=== PATIENT | female | born 1970 | race Caucasian/White ===

== ENCOUNTER 2016-06-29 15:30 | Inpatient (IN) ==
[2016-06-29 17:46] LABS: Appearance,Urine CLEAR; Bilirubin,Urine NEG (NEG); Color,Urine YELLOW; Glucose,Urine (UA) NEGATIVE (NEG); Leukocyte Esterase,Urine NEG /uL (NEG); Nitrate,Urine NEG (NEG); Protein,Urine NEG (NEG); Specific Gravity,Urine 1.015 (1.000-1.035); Urine Blood NEG mg/dL (<0.03); Urobilinogen,Urine NEG (NEG)
[2016-06-29 18:16] LABS: Basophils # (Auto) 0.1 K/mcL (0.0-0.3); Basophils % (Auto) 0.8 % (0.0-2.0); Eosinophils # (Auto) 0.3 K/mcL (0.0-0.7); Eosinophils % (Auto) 3.3 % (0.0-7.0); Granulocytes % (Auto) 52.7 % (38.0-78.0); Lymphocytes # (Auto) 2.7 K/mcL (1.5-4.8); Lymphocytes % (Auto) 33.5 % (15.5-49.0); Mean Cell Volume 96.4 fL (80.0-100.0); Mean Corpuscular HGB Conc 33.2 g/dL (31.0-36.0); Monocytes # (Auto) 0.8 K/mcL (0.1-0.9); Monocytes % (Auto) 9.7 % (1.0-12.0); Platelet Count 340 K/mcL (140-440); RBC 4.34 M/mcL (4.00-5.20); Red Cell Distribution Width 13.5 % (11.5-14.5)
[2016-06-29 18:37] LABS: Blood Urea Nitrogen 10 mg/dl (6-20)
[2016-06-30] MEDS ORDERED: SCOPOLAMINE 1 PATCH PATCH TOPICAL ONE (12:34)
[2016-07-03] MEDS ORDERED: ACETAMINOPHEN 500 MG TABLET PO SCH (05:00)
[2016-07-03] MEDS ORDERED: ceFAZolin 1 GM VIAL IV SCH (05:00)
[2016-07-03] MEDS ORDERED: CELECOXIB 200 MG CAPSULE PO SCH (05:00)
[2016-07-03] MEDS ORDERED: SCOPOLAMINE 1 PATCH PATCH TOPICAL SCH (05:00)
[2016-07-03] MEDS ORDERED: oxyCODONE 10 MG TAB.ER.12H PO SCH (05:00)
[2016-07-03] MEDS ORDERED: PREGABALIN 75 MG CAPSULE PO SCH (05:00)
[2016-07-03] MEDS ORDERED: GENTAMICIN SULFATE 800 MG/20 ML VIAL IR ONE (07:07)
[2016-07-03] MEDS ORDERED: TRANEXAMIC ACID 1,000 MG/10 ML VIAL IV ONE (07:35)
[2016-07-03] MEDS ORDERED: LIDOCAINE HCL/PF 100 MG/5 ML SYRINGE IV ONE (07:35)
[2016-07-03] MEDS ORDERED: PROPOFOL 200 MG/20 ML VIAL IV ONE (07:35)
[2016-07-03] MEDS ORDERED: ePHEDrine 50 MG/ML AMPUL IV ONE (07:35)
[2016-07-03] MEDS ORDERED: DEXAMETHASONE 10 MG/ML VIAL IV ONE (07:35)
[2016-07-03] MEDS ORDERED: GLYCOPYRROLATE 0.2 MG/ML VIAL IV ONE (07:35)
[2016-07-03] MEDS ORDERED: ONDANSETRON 4 MG/2 ML VIAL IV ONE (07:35)
[2016-07-03] MEDS ORDERED: MIDAZOLAM 5 MG/5 ML VIAL IV ONE (07:35)
[2016-07-03] MEDS ORDERED: MEPERIDINE 25 MG/ML SYRINGE IV PRN (08:35)
[2016-07-03] MEDS ORDERED: ONDANSETRON 4 MG/2 ML VIAL IV PRN ×2 (08:35→08:52)
[2016-07-03] MEDS ORDERED: FLUMAZENIL 0.1 MG/ML ML IV PRN (08:35)
[2016-07-03] MEDS ORDERED: LACTATED RINGERS 250 ML IV PRN (08:35)
[2016-07-03] MEDS ORDERED: IPRATROPIUM/ALBUTEROL 3 ML AMPUL.NEB NEB PRN (08:35)
[2016-07-03] MEDS ORDERED: HYDROmorphone 2 MG/ML SYRINGE IV PRN ×2 (08:35→08:52)
[2016-07-03] MEDS ORDERED: BENZOCAINE/MENTHOL 1 LOZENGE PO PRN ×2 (08:35→08:52)
[2016-07-03] MEDS ORDERED: NALOXONE HCL 0.4 MG/ML VIAL IV PRN (08:35)
[2016-07-03] MEDS ORDERED: diphenhydrAMINE 50 MG/ML VIAL IV PRN (08:35)
[2016-07-03] MEDS ORDERED: METHOCARBAMOL 1,000 MG/10 ML VIAL IV PRN (08:35)
[2016-07-03] MEDS ORDERED: LACTATED RINGERS 1,000 ML IV SCH (08:45)
--- NOTE | 2016-07-03 08:45 | XRay Report ---
CLINICAL INFORMATION: Left hip arthroplasty TECHNIQUE: Intraoperative AP view of the left hip COMPARISON: Preoperative evaluation dated 03/20/2016 FINDINGS: Left total hip arthroplasty. Anatomic alignment demonstrated on single intraoperative examination IMPRESSION: Left hip arthroplasty Interpreted and Authenticated by: Temo Douglas 07/03/16
[2016-07-03] MEDS ORDERED: BISACODYL 10 MG SUPP.RECT PR PRN (08:52)
[2016-07-03] MEDS ORDERED: MAGNESIUM HYDROXIDE 30 ML ORAL.SUSP PO PRN (08:52)
[2016-07-03] MEDS ORDERED: ACETAMINOPHEN 325 MG TABLET PO PRN (08:52)
[2016-07-03] MEDS ORDERED: FLEETS ADULT ENEMA PR PRN (08:52)
[2016-07-03] MEDS ORDERED: TRANEXAMIC ACID 1,000 MG/10 ML VIAL IV SCH (08:52)
[2016-07-03] MEDS ORDERED: POLYETHYLENE GLYCOL 3350 17 GM PACKET PO PRN (08:52)
--- NOTE | 2016-07-03 08:52 | Brief Operative Note ---
Date of procedure: 07/03/16 Pre-op diagnosis: Left hip djd Post-op diagnosis: same Procedure: Left cayetano Grafts/Implants: Yes Anesthesia: GETA Findings: severe djd left hip Complications Description: 07/03/16 08:52 none Surgeon: Joshua Lenz Appeals Writer: Sree Anaya Estimated blood loss (cc): 50 Specimens Removed/Pathology: none sent Condition: stable Disposition: PACU
[2016-07-03] MEDS ORDERED: [UNRECOGNIZED DRUG - OTHER] PO PRN (08:58)
[2016-07-03] MEDS ORDERED: CYCLOBENZAPRINE 10 MG TABLET PO PRN (08:58)
[2016-07-03] MEDS: VITAMIN D3 1,000 UNIT TABLET PO SCH (09:00)
[2016-07-03] MEDS: MULTIVIT,THER IRON,CA,FA & MIN 1 TABLET PO SCH (09:00)
[2016-07-03] MEDS: VITAMIN B COMPLEX 1 CAPSULE PO SCH (09:00)
[2016-07-03] MEDS: PYRIDOXINE 100 MG TABLET PO SCH (09:00)
[2016-07-03] MEDS: CYANOCOBALAMIN (VITAMIN B-12) 500 MCG TABLET PO SCH (09:00)
[2016-07-03] MEDS: DOCUSATE SODIUM 100 MG CAPSULE PO SCH ×2 (09:00→20:23)
[2016-07-03] MEDS: fentaNYL 100 MCG/2 ML VIAL IV PRN ×2 (09:28→09:36)
--- NOTE | 2016-07-03 09:42 | XRay Report ---
CLINICAL INFORMATION: Postsurgical follow-up TECHNIQUE: AP pelvis, lateral left hip COMPARISON: Preoperative evaluation dated 03/20/2016 FINDINGS: Status post left total hip arthroplasty. Normal anatomic alignment demonstrated. Pelvis is negative. Sacrum and right hip are negative. Degenerative joint space narrowing in the right hip. Postsurgical soft tissue and intra-articular gas. IMPRESSION: Status post left total hip arthroplasty. Interpreted and Authenticated by: Temo Douglas 07/03/16
--- NOTE | 2016-07-03 09:46 | Operative Note ---
DATE OF OPERATION: 07/03/2016 PREOPERATIVE DIAGNOSIS: Left hip degenerative arthritis, severe. POSTOPERATIVE DIAGNOSIS: Left hip degenerative arthritis, severe. PROCEDURE: Left total hip arthroplasty, cementless components. SURGEON: Joshua Lenz MD NET DEVELOPER: Sree Anaya PA-C ANESTHESIA: General LMA anesthesia. COMPLICATIONS: None. DESCRIPTION OF PROCEDURE: The patient was brought to the operating room and put to sleep with general LMA anesthesia. Once asleep, the patient had the left hip sterilely prepped and draped in the usual sterile fashion. Once this was done, we confirmed the operative site and turned her into a right lateral position and placed Ioban over the skin, confirmed the operative site. Tranexamic acid and antibiotics had been given preoperatively. Patient tolerated this well. We then made our superior posterior approach to the hip, dissected down through the fascial layer, exposed the hip, dislocated the hip and made our neck cut at 32 mm from the center of hip rotation. Once complete, we then reamed up to the size 52 and implanted a 52 cup. Once this was done, we then put 1 20 mm screw and a dual mobility liner. We broached up to the size 4 and took an x-ray of a size 4 and then slightly sunk the final implant a little bit lower to make leg lengths perfectly equal and placed a neutral neck length. The patient tolerated this well. There was no complication. This was irrigated. We implanted the final size 4 stem with a neutral neck length, dual mobility ball. We repaired the capsule posteriorly, closed the fascial layer with #2 Ethibond, #1 Vicryl and closed the skin with #2 Vicryl and an adhesive closure performed. The patient tolerated this well without complication. RBH:elodia Job ID: [id number] Doc ID: [id number] Joshua Lenz MD
[2016-07-03] MEDS: KETOROLAC 15 MG/ML VIAL IV PRN ×2 (11:26→18:28)
[2016-07-03] MEDS: 0.45 % SODIUM CHLORIDE 1,000 ML IV SCH ×2 (12:06→21:37)
[2016-07-03] MEDS: HYDROcodone/APAP 10/325MG TABLET PO PRN ×3 (14:33→22:45)
[2016-07-03] MEDS: 0.9 % SODIUM CHLORIDE 10 ML SYRINGE IV SCH ×2 (14:37→22:55)
[2016-07-03] MEDS: ceFAZolin 1 GM VIAL IV SCH ×2 (15:58→23:58)
[2016-07-03] MEDS: ASPIRIN 325 MG ENTERIC COATED TABLET PO SCH (20:23)
[2016-07-03] MEDS ORDERED: SENNOSIDES 1 TABLET PO SCH (21:00)
[2016-07-03] MEDS ORDERED: PARoxetine 20 MG TABLET PO SCH (21:00)
[2016-07-03] MEDS ORDERED: TEMAZEPAM 15 MG CAPSULE PO PRN (21:00)
[2016-07-03] MEDS ORDERED: CALCIUM CARBONATE 500 MG TAB.CHEW PO SCH (21:00)
[2016-07-03] MEDS ORDERED: PROGESTERONE MICRONIZED 100 MG PO SCH (21:00)
[2016-07-03] MEDS ORDERED: ESTRADIOL 1 MG TABLET PO SCH (21:00)
[2016-07-04] MEDS: HYDROcodone/APAP 10/325MG TABLET PO PRN ×4 (03:15→16:00)
[2016-07-04] MEDS: 0.45 % SODIUM CHLORIDE 1,000 ML IV SCH (04:37)
[2016-07-04] MEDS: 0.9 % SODIUM CHLORIDE 10 ML SYRINGE IV SCH ×2 (04:45→14:40)
[2016-07-04] MEDS: KETOROLAC 15 MG/ML VIAL IV PRN ×2 (07:32→14:37)
--- NOTE | 2016-07-04 07:36 | Orthopedic Progress Note ---
Subjective Patient information: Note initiated : 07/04/16 at 7:36 am Service Date, if different from initiated Date: [] Patient: Elli Lopez 45 y/o F admitted on 07/03/16 for Left Total Hip Arthroplasty. Chief Complaint: [Pt is stable this morning on post operative day 1 without any significant concerns or complaints. Patients vital signs have remained stable. Patients dressing is dry and exhibits a grossly intact neurovascular and neuromotor exam. Patients 10 point ROS is otherwise negative. ] Objective Vital signs: Vital Signs Temp Pulse Resp BP BP Pulse Ox 07/04/16 03:41 97.9 F 69 16 106/72 97 07/04/16 02:00 96 07/04/16 00:00 97.6 F 81 16 101/65 96 07/03/16 22:00 97 07/03/16 19:55 98.4 F 91 H 16 115/76 97 07/03/16 18:00 99 07/03/16 14:00 99 07/03/16 12:45 79 132/86 98 07/03/16 12:00 100 07/03/16 11:45 79 132/86 98 07/03/16 11:15 82 139/92 98 07/03/16 10:52 100 07/03/16 10:40 82 130/80 100 07/03/16 10:26 89 127/61 100 07/03/16 10:10 82 122/83 100 07/03/16 09:55 87 132/86 98 07/03/16 09:54 84 124/77 100 07/03/16 09:40 97.2 F L 94 H 12 99/73 100 07/03/16 09:30 96 H 11 L 109/98 100 07/03/16 09:08 97.2 F L 79 13 100 Intake and Output 07/03/16 07/04/16 07/04/16 21:59 05:59 13:59 Intake Total 1552 / 1552 1335 / 1335 Output Total 400 / 400 325 / 325 Balance 1152 / 1152 1010 / 1010 Intake: IV 952 / 952 585 / 585 Sodium Chloride 0.45% 1, 952 / 952 585 / 585 000 ml @ 100 mls/hr IV . Q10H [facility] Rx#:[id number] Oral 600 / 600 750 / 750 Output: Void Amount 400 / 400 325 / 325 Other: Meal Dinner Percent of Meal Consumed 50% # Voids 1 Weight 184 lb Intake & Output: Intake & Output 07/03/16 07/04/16 07/04/16 21:59 05:59 13:59 Intake Total 1552 / 1552 1335 / 1335 Output Total 400 / 400 325 / 325 Balance 1152 / 1152 1010 / 1010 Weight 184 lb Intake: IV 952 / 952 585 / 585 Sodium Chloride 0.45% 1, 952 / 952 585 / 585 000 ml @ 100 mls/hr IV . Q10H [facility] Rx#:[id number] Oral 600 / 600 750 / 750 Output: Void Amount 400 / 400 325 / 325 Other: Meal Dinner Percent of Meal Consumed 50% # Voids 1 Incision: Yes healing Incision clean and dry: Yes Dressing: Yes clean, Yes dry Weight bearing status: full Neurological exam IM: Yes motor sensory intact, Yes neurovascular intact Extremities exam IM: Yes Foot pink and warm, Yes neurovascular intact - Labs CBC & BMP: 07/04/16 05:23 06/29/16 16:08 Labs: Orthopedic Labs 06/29/16 16:08 PT 12.0 INR 0.9 APTT 29 07/04/16 06/29/16 05:23 16:08 Hgb 13.9 Hct 25.9 L 41.8 Assessment and Plan (1) Hx of total hip arthroplasty Patient has been educated regarding wound care and dressings, follow up recommendations, and medication use. We will f/u with the patient within 2-3 weeks for wound check. Status: Acute
--- NOTE | 2016-07-04 07:39 | Discharge Summary ---
Ortho Discharge - SONIA - Patient Instructions Diet: Regular Diet Activity: activity as tolerated, weight bearing as tolerated Total Hip Protocol: Follow activity instructions as provided by Physical Therapy. Dressing Care: May shower in 2 days Patient Education: Total Hip Replacement (DC) Additional Instructions: Discharge Instructions: Patient wishes to do own pt at home Do the exercises at home that physical therapy gave you. Take your prescription, photo ID, insurance cards, and current medication list with you to your first physical therapy appointment. [place] [facility] [place], insurance cards. Your orders have been faxed to them. Wear comfortable clothing for your physical therapy. Weight bearing as tolerated. Keep incision clean and dry. You have Dermabond (a dressing with a mesh-like appearance), leave open to air. You may start showering on post op day #2. The Dermabond dressing can get wet, do not scrub dressing. Pat dry. To avoid constipation while taking any narcotic pain medication, take an over the counter stool softener/laxative. Use your Cryocuff or ice packs as directed, on for 20 minutes at a time throughout the day. This and elevation will help with pain and swelling. Call your physician for fevers above 100.5 or pain not controlled by medication. Your prescriptions are with your discharge information. Some medications were electronically transmitted to your pharmacy of choice. - Problem Maintenance (1) Hx of total hip arthroplasty Status: Acute - Follow Up Plan Follow Up Appointments: Joshua Lenz MD [Physician] - 07/18/16 8:40 am Disposition: Home, Self-Care Prognosis: Good Rehab Potential: Good I certify that the patient requires SNF services: No Overall status at discharge: patient is progressing back to baseline - Orders For Discharge Prescriptions: Aspirin [Ecotrin] 325 mg PO BID #60 tab.ec Docusate Sodium [Colace] 100 mg PO BID #60 capsule HYDROcodone/APAP 10/325MG [[place] 10/325Mg] 1 - 2 tab PO Q4HP PRN #75 tablet PRN Reason: Pain
[2016-07-04] MEDS ORDERED: FERROUS SULFATE 325 MG TABLET PO SCH (08:00)
[2016-07-04] MEDS: ASPIRIN 325 MG ENTERIC COATED TABLET PO SCH (08:55)
[2016-07-04] MEDS: DOCUSATE SODIUM 100 MG CAPSULE PO SCH (08:56)
[2016-07-04] MEDS: VITAMIN B COMPLEX 1 CAPSULE PO SCH (08:56)
[2016-07-04] MEDS: VITAMIN D3 1,000 UNIT TABLET PO SCH (08:56)
[2016-07-04] MEDS: MULTIVIT,THER IRON,CA,FA & MIN 1 TABLET PO SCH (08:56)
[2016-07-04] MEDS: CYANOCOBALAMIN (VITAMIN B-12) 500 MCG TABLET PO SCH (08:56)
[2016-07-04] MEDS: PYRIDOXINE 100 MG TABLET PO SCH (08:57)
[2016-07-04] MEDS ORDERED: ESTRADIOL 1 MG TABLET PO SCH (09:00)
[2016-07-04] MEDS ORDERED: PROGESTERONE MICRONIZED 100 MG PO SCH (09:00)
[2016-07-04] MEDS ORDERED: PARoxetine 20 MG TABLET PO SCH (09:00)
== END 2016-07-04 16:00 | disposition home or self-care (01) | DRG 470 ==
LOC: MEDSUR 07-03 05:04
PROVIDERS: ADMIT Orthopaedic Surgery; ATTEND Orthopaedic Surgery

== ENCOUNTER 2017-01-09 13:30 | Inpatient (IN) ==
[2017-01-09 15:22] LABS: Appearance,Urine CLEAR; Bilirubin,Urine NEG (NEG); Color,Urine YELLOW; Glucose,Urine (UA) NEGATIVE (NEG); Leukocyte Esterase,Urine NEG /uL (NEG); Nitrate,Urine NEG (NEG); Protein,Urine NEG (NEG); Specific Gravity,Urine 1.009 (1.000-1.035); Urine Blood NEG mg/dL (<0.03); Urobilinogen,Urine NEG (NEG)
[2017-01-09 16:03] LABS: Basophils # (Auto) 0.1 K/mcL (0.0-0.3); Basophils % (Auto) 0.7 % (0.0-2.0); Eosinophils # (Auto) 0.4 K/mcL (0.0-0.7); Eosinophils % (Auto) 5.8 % (0.0-7.0); Granulocytes % (Auto) 42.1 % (38.0-78.0); Lymphocytes # (Auto) 3.2 K/mcL (1.5-4.8); Lymphocytes % (Auto) 41.8 % (15.5-49.0); Mean Cell Volume 97.5 fL (80.0-100.0); Mean Corpuscular HGB Conc 33.3 g/dL (31.0-36.0); Mean Corpuscular Hemoglobin 32.5 pg (26.0-34.0); Monocytes # (Auto) 0.7 K/mcL (0.1-0.9); Monocytes % (Auto) 9.6 % (1.0-12.0); Platelet Count 302 K/mcL (140-440); RBC 4.32 M/mcL (4.00-5.20); Red Cell Distribution Width 13.9 % (11.5-14.5)
[2017-01-09 16:07] LABS: Blood Urea Nitrogen 8 mg/dl (6-20)
[2017-01-15] MEDS ORDERED: ceFAZolin 1 GM VIAL IV SCH ×2 (05:00→12:00)
[2017-01-15] MEDS ORDERED: ACETAMINOPHEN 500 MG TABLET PO SCH ×2 (05:00→12:00)
[2017-01-15] MEDS ORDERED: PREGABALIN 75 MG CAPSULE PO SCH ×2 (05:00→12:00)
[2017-01-15] MEDS ORDERED: oxyCODONE 10 MG TAB.ER.12H PO SCH ×2 (05:00→12:00)
[2017-01-15] MEDS ORDERED: CELECOXIB 200 MG CAPSULE PO SCH ×2 (05:00→12:00)
[2017-01-15] MEDS ORDERED: LIDOCAINE HCL/PF 100 MG/5 ML SYRINGE IV ONE (14:45)
[2017-01-15] MEDS ORDERED: SUCCINYLCHOLINE 20 MG/ML ML IV ONE (14:45)
[2017-01-15] MEDS ORDERED: ONDANSETRON 4 MG/2 ML VIAL IV ONE (14:45)
[2017-01-15] MEDS ORDERED: PHENYLEPHRINE 10 MG/ML VIAL IV ONE (14:45)
[2017-01-15] MEDS ORDERED: TRANEXAMIC ACID 1,000 MG/10 ML VIAL IV ONE ×2 (14:45→15:53)
[2017-01-15] MEDS ORDERED: PROPOFOL 200 MG/20 ML VIAL IV ONE (14:45)
[2017-01-15] MEDS ORDERED: DEXAMETHASONE 10 MG/ML VIAL IV ONE (14:45)
[2017-01-15] MEDS ORDERED: MIDAZOLAM 2 MG/2 ML VIAL IV ONE (14:45)
[2017-01-15] MEDS ORDERED: ePHEDrine 50 MG/ML AMPUL IV ONE (14:45)
[2017-01-15] MEDS ORDERED: GENTAMICIN SULFATE 800 MG/20 ML VIAL IR ONE (15:11)
[2017-01-15] MEDS ORDERED: ONDANSETRON 4 MG/2 ML VIAL IV PRN ×2 (15:53→17:17)
[2017-01-15] MEDS ORDERED: BENZOCAINE/MENTHOL 1 LOZENGE PO PRN ×2 (15:53→17:17)
[2017-01-15] MEDS ORDERED: BISACODYL 10 MG SUPP.RECT PR PRN (15:53)
[2017-01-15] MEDS ORDERED: TEMAZEPAM 15 MG CAPSULE PO PRN (15:53)
[2017-01-15] MEDS ORDERED: POLYETHYLENE GLYCOL 3350 17 GM PACKET PO PRN (15:53)
[2017-01-15] MEDS ORDERED: KETOROLAC 15 MG/ML VIAL IV PRN (15:53)
[2017-01-15] MEDS ORDERED: FLEETS ADULT ENEMA PR PRN (15:53)
[2017-01-15] MEDS ORDERED: ACETAMINOPHEN 325 MG TABLET PO PRN (15:53)
[2017-01-15] MEDS ORDERED: MAGNESIUM HYDROXIDE 30 ML ORAL.SUSP PO PRN (15:53)
--- NOTE | 2017-01-15 15:53 | Brief Operative Note ---
Date of procedure: 01/15/17 Pre-op diagnosis: Right hip djd Post-op diagnosis: same Procedure: right total hip Grafts/Implants: Yes Anesthesia: GETA Complications: none Complications Description: 01/15/17 15:53 none Surgeon: Joshua Lenz Refueling Ramp Attendant: Sree Anaya Estimated blood loss (cc): 50 Specimens Removed/Pathology: none sent Condition: stable Disposition: PACU
--- NOTE | 2017-01-15 17:16 | Operative Note ---
DATE OF OPERATION: 01/15/2017 PREOPERATIVE DIAGNOSIS: Right hip degenerative arthritis. POSTOPERATIVE DIAGNOSIS: Right hip degenerative arthritis. PROCEDURE: Right total hip arthroplasty. SURGEON: Joshua Lenz M.D. BREEDER HEN SERVICE TECHNICIAN: Sree Anaya PA-C. BLOOD LOSS: Less than 50 mL. IMPLANTS: Cementless 52 cup with a 35 mm screw; a poly liner, 36 mm; size 4 stem with a +5 ceramic 36 mm ball were implanted. COMPLICATIONS: None. DESCRIPTION OF PROCEDURE: The patient was brought to the operating room and put to sleep with general LMA anesthesia. Once confirmed the right hip to be the correct side with both initials, timeout, consent form and x-rays, tranexamic acid and antibiotics were given. After being sterilely prepped and draped in the left lateral position, the right hip had Ioban placed on the hip. We made a superior posterior approach extending into the IT band. Once we identified the posterior capsule, we released this and then dislocated the hip. We made our neck cut at 32 mm and subluxed the hip anteriorly. We reamed the acetabulum up to a 52 cup, taking this to the medial wall. A 52 cup was placed with a 36 mm screw. Once in place, we then irrigated thoroughly and placed a poly liner, 36 mm. Once done, I then prepared the femur, broaching up to the size 4, reaming distally to an 11 mm. Once we lateralized and had the components, a standard neck length, we took an x-ray. Leg lengths were equal but the stem was not fully seated. We then dislocated the hip, broached up and depth was increased 5 mm. We implanted a 5 plus neck length. This was very stable with no instability. We irrigated thoroughly, implanted a size 4 stem, a +5 neck length with a 36 mm ceramic head. This was reduced and very stable. We irrigated. We repaired the capsule superior posteriorly with #2 Ethibond. We irrigated once more and then closed the fascial layer with #1 Stratafix. We closed the fatty layer with #1 Vicryl and skin with 2-0 Vicryl and vonnie. The patient tolerated this well. There was no complication. RBH:maik Job ID: [id number] Doc ID: [id number] Joshua Lenz MD
[2017-01-15] MEDS ORDERED: PROMETHAZINE 25 MG/ML VIAL IV PRN (17:17)
[2017-01-15] MEDS ORDERED: ACETAMINOPHEN 1,000 MG/100 ML BOTTLE IV ONE (17:17)
[2017-01-15] MEDS ORDERED: FLUMAZENIL 0.1 MG/ML ML IV PRN (17:17)
[2017-01-15] MEDS ORDERED: MEPERIDINE 25 MG/ML SYRINGE IV PRN (17:17)
[2017-01-15] MEDS ORDERED: IPRATROPIUM/ALBUTEROL 3 ML AMPUL.NEB NEB PRN (17:17)
[2017-01-15] MEDS ORDERED: diphenhydrAMINE 50 MG/ML VIAL IV PRN (17:17)
[2017-01-15] MEDS ORDERED: NALOXONE HCL 0.4 MG/ML VIAL IV PRN (17:17)
[2017-01-15] MEDS ORDERED: METHOCARBAMOL 1,000 MG/10 ML VIAL IV PRN (17:17)
[2017-01-15] MEDS ORDERED: METOPROLOL TARTRATE 5 MG/5 ML VIAL IV PRN (17:17)
[2017-01-15] MEDS ORDERED: ePHEDrine 50 MG/ML AMPUL IV PRN (17:17)
[2017-01-15] MEDS ORDERED: ATROPINE SULFATE 0.4 MG/ML VIAL IV PRN (17:17)
[2017-01-15] MEDS ORDERED: BUPIVACAINE 0.5% 50 ML VIAL IJ ONE (17:20)
--- NOTE | 2017-01-15 17:20 | Orthopedic Procedure Note ---
Date of procedure: Note initiated : 01/15/17 at 5:18 pm Service Date, if different from initiated Date: [] Pre-op diagnosis: R hallux valgus Post-op diagnosis: same Procedure: r chevron osteotomy Grafts/Implants: 3.0 headless screws Anesthesia: GETA Surgeon: Juan R Colindres Supply Chain Coordinator: Stevan Montano Estimated blood loss: 0 Pathology: none sent Description of procedure: R chevron osteotomy Condition: stable Disposition: PACU
[2017-01-15] MEDS: fentaNYL 100 MCG/2 ML VIAL IV PRN ×2 (17:50→18:12)
--- NOTE | 2017-01-15 18:53 | XRay Report ---
CLINICAL INFORMATION: Bunion correction COMPARISON: None. FINDINGS: Osteotomy changes in the first metatarsal neck appreciated with baptism of anatomic alignment. The osteotomy transfixed by single screw. There is also apparent shaving medial metatarsal head as expected. 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 Joint spaces are normal with alignment. IMPRESSION: Osteotomy first metatarsal neck which successfully corrected bunion deformity. Old united nondisplaced fracture tip of the medial malleolus Interpreted and Authenticated by: Temo Castle 01/15/17
--- NOTE | 2017-01-15 18:55 | XRay Report ---
CLINICAL INFORMATION: Postop total hip replacement COMPARISON: Preoperative plain film 07/03/2016 FINDINGS: Right total hip prostheses is anatomically aligned. No osseous abnormality. The older left total hip prostheses also anatomically aligned. Soft tissue swelling over the surgical site - as expected IMPRESSION: Negative Interpreted and Authenticated by: Temo Castle 01/15/17
[2017-01-15] MEDS: 0.45 % SODIUM CHLORIDE 1,000 ML IV SCH (19:02)
[2017-01-15] MEDS: oxyCODONE/APAP 5/325MG TABLET PO PRN (19:27)
[2017-01-15] MEDS: ASPIRIN 325 MG ENTERIC COATED TABLET PO SCH (21:18)
[2017-01-15] MEDS: DOCUSATE SODIUM 100 MG CAPSULE PO SCH (21:18)
[2017-01-15] MEDS: SENNOSIDES 1 TABLET PO SCH (21:18)
[2017-01-15] MEDS: HYDROmorphone 2 MG/ML SYRINGE IV PRN (22:25)
[2017-01-15] MEDS: 0.9 % SODIUM CHLORIDE 10 ML SYRINGE IV SCH (22:27)
[2017-01-15] MEDS: ceFAZolin 1 GM VIAL IV SCH (22:27)
[2017-01-16] MEDS: oxyCODONE/APAP 5/325MG TABLET PO PRN ×6 (00:03→21:24)
[2017-01-16] MEDS: 0.45 % SODIUM CHLORIDE 1,000 ML IV SCH ×2 (02:49→05:50)
[2017-01-16] MEDS: ceFAZolin 1 GM VIAL IV SCH (05:45)
[2017-01-16] MEDS: 0.9 % SODIUM CHLORIDE 10 ML SYRINGE IV SCH ×3 (06:28→20:16)
--- NOTE | 2017-01-16 07:29 | Orthopedic Progress Note ---
Subjective Patient information: Note initiated : 01/16/17 at 7:28 am Service Date, if different from initiated Date: [] Patient: Elli Lopez 46 y/o F admitted on 01/15/17 for Right Total Hip Arthroplasty. Chief Complaint: [Pt is stable this morning on post operative day 1 without any significant concerns or complaints. Patients vital signs have remained stable. Patients dressing is dry and exhibits a grossly intact neurovascular and neuromotor exam. Patients 10 point ROS is otherwise negative. ] Objective Vital signs: Vital Signs Temp Pulse Resp BP BP Pulse Ox 01/16/17 05:00 99 01/16/17 03:15 97.5 F 65 22 107/74 99 01/16/17 03:00 99 01/15/17 23:55 97.7 F 95 H 22 135/88 98 01/15/17 23:00 98 01/15/17 21:26 88 108/72 100 01/15/17 20:26 86 115/79 100 01/15/17 19:56 98 H 127/82 98 01/15/17 19:26 96 H 123/86 97 01/15/17 19:11 100 H 114/73 99 01/15/17 18:56 94 H 127/88 97 01/15/17 18:42 96.4 F L 92 H 24 H 130/91 97 01/15/17 18:29 97.8 F 16 131/73 100 01/15/17 18:01 97.8 F 16 131/73 100 01/15/17 17:46 96.4 F L 16 105/62 100 01/15/17 17:31 96.4 F L 16 105/62 100 01/15/17 11:17 97.4 F 16 135/82 100 01/15/17 09:32 18 Intake and Output 01/15/17 01/16/17 01/16/17 21:59 05:59 13:59 Intake Total 1500 / 1500 1974 Output Total 1150 / 1150 300 / 300 Balance 1500 / 1500 825 / 825 -300 / -300 Intake: IV 1000 / 1000 Sodium Chloride 0.45% 1,000 ml 1000 / 1000 @ 100 mls/hr IV .Q10H [facility] Rx#: [id number] Oral 975 / 975 Other 1500 / 1500 Output: Void Amount 1150 / 1150 300 / 300 Other: # Voids 1 1 Weight 187 lb 8 oz Intake & Output: Intake & Output 01/15/17 01/16/17 01/16/17 21:59 05:59 13:59 Intake Total 1500 / 1500 1974 Output Total 1150 / 1150 300 / 300 Balance 1500 / 1500 825 / 825 -300 / -300 Weight 187 lb 8 oz Intake: IV 1000 / 1000 Sodium Chloride 0.45% 1,000 ml 1000 / 1000 @ 100 mls/hr IV .Q10H [facility] Rx#: [id number] Oral 975 / 975 Other 1500 / 1500 Output: Void Amount 1150 / 1150 300 / 300 Other: # Voids 1 1 Incision: Yes healing Incision clean and dry: Yes Dressing: Yes clean, Yes dry Weight bearing status: partial Neurological exam IM: Yes motor sensory intact, Yes neurovascular intact Extremities exam IM: Yes neurovascular intact - Labs CBC & BMP: 01/16/17 04:53 01/09/17 13:47 Labs: Orthopedic Labs 01/09/17 13:47 PT 11.6 L INR 0.8 L APTT 31 01/16/17 01/09/17 04:53 13:47 Hgb 14.0 Hct 33.4 L 42.1 Assessment and Plan (1) Hx of total hip arthroplasty The patient has been educated regarding dressing care, Physical Therapy recommendations, home exercises, restrictions, and follow up appointments. The patient has had all necessary DME prescribed. The patient has remained stable during their hospital course. The patient was discharge with a stable exam. Status: Acute
--- NOTE | 2017-01-16 07:32 | Discharge Summary ---
Ortho Discharge - SONIA - Patient Instructions Diet: Regular Diet Activity: weight bearing as tolerated, partial weight bearing Total Hip Protocol: Follow activity instructions as provided by Physical Therapy. Dressing Care: May shower in 2 days Patient Education: Total Hip Replacement (DC) - Problem Maintenance (1) Hx of total hip arthroplasty Status: Acute - Follow Up Plan Follow Up Appointments: Joshua Lenz MD [Physician] - 01/30/17 10:40 am Disposition: Home, Self-Care Prognosis: Good Rehab Potential: Good I certify that the patient requires SNF services: No Overall status at discharge: patient is progressing back to baseline - Orders For Discharge Prescriptions: Aspirin [Ecotrin] 325 mg PO BID #60 tab.ec Docusate Sodium [Colace] 100 mg PO BID #60 cap oxyCODONE/APAP [Percocet 5-325 mg] 1 - 2 tab PO Q4HP PRN #75 tab PRN Reason: Pain Level 3-6
--- NOTE | 2017-01-16 08:06 | Operative Note ---
DATE OF OPERATION: 01/15/2017 PREOPERATIVE DIAGNOSIS: Right hallux valgus. POSTOPERATIVE DIAGNOSIS: Right hallux valgus. OPERATION: Right first metatarsal Chevron osteotomy. STUDENT SERVICES DIRECTOR: Stevan Montano PA-C. ANESTHESIA: General done by Betty Sanders CRNA. TOURNIQUET TIME: 45 minutes. Ankle level Esmarch tourniquet. SUMMARY OF PROCEDURE: General anesthesia was already accomplished with the patient's total hip replacement. The right leg was reprepped and draped. An ankle level Esmarch tourniquet was put up. The first space web incision was made about 1 inch in length. This was taken down with sharp dissection to the lateral capsule of the first metatarsal. This was released a little distal to the joint with care being taken to avoid the flexor and extensor tendon. This wound was irrigated. The subcutaneous tissue was closed with interrupted 2-0 Monocryl. The skin was closed with mattress and simple sutures of 3-0 nylon. Attention was then turned medially. A medial longitudinal incision was made about 2 inches in length. It was taken down to the capsule. A 5 mm resection of the medial capsule was taken out over the medial eminence. The dorsal capsule was taken down. The medial eminence was resected parallel to the shaft of the first metatarsal. I marked the distance 1 cm from the level of the joint. A Chevron shaped cut was made. The head was mobilized about 5 mm laterally reduced in the joint. This was pinned. The reduction was confirmed under mini C-arm. Definitive fixation was then done with 3.0 cannulated headless screw, which was countersunk. Length was 14 mm. Clinically, there was good stability. X-rays confirmed stability as well on AP, lateral, and oblique x-rays. The prominent medial bone was resected with a saw. The wound was irrigated. The capsulorrhaphy was done with imbricating sutures of 2-0 Vicryl. The subcutaneous tissue was closed with buried 2-0 Monocryl and 3-0 nylon. Simple sutures were used on the skin. A medial ankle block was placed with 15 mL of Marcaine for postoperative analgesia. A sterile compressive reduction dressing was applied. The sponge and needle count was correct. The patient tolerated the procedure well and was taken to the recovery room in stable condition. [email or web address] Job ID: [id number] Doc ID: [id number] Juan R Colindres MD
[2017-01-16] MEDS: DOCUSATE SODIUM 100 MG CAPSULE PO SCH ×2 (08:19→20:15)
[2017-01-16] MEDS: ASPIRIN 325 MG ENTERIC COATED TABLET PO SCH ×2 (08:19→20:15)
[2017-01-16] MEDS: HYDROmorphone 2 MG/ML SYRINGE IV PRN ×2 (10:45→23:42)
[2017-01-16] MEDS: PARoxetine 20 MG TABLET PO SCH ×2 (15:30→20:15)
[2017-01-16] MEDS: SENNOSIDES 1 TABLET PO SCH (20:15)
[2017-01-16] MEDS ORDERED: ESTRADIOL 1 MG TABLET PO SCH (21:00)
[2017-01-17] MEDS: oxyCODONE/APAP 5/325MG TABLET PO PRN ×2 (02:47→07:26)
[2017-01-17] MEDS: 0.9 % SODIUM CHLORIDE 10 ML SYRINGE IV SCH ×2 (05:40→07:23)
[2017-01-17] MEDS: HYDROmorphone 2 MG/ML SYRINGE IV PRN (07:22)
[2017-01-17] MEDS: DOCUSATE SODIUM 100 MG CAPSULE PO SCH (10:12)
[2017-01-17] MEDS: ASPIRIN 325 MG ENTERIC COATED TABLET PO SCH (10:12)
== END 2017-01-17 11:35 | disposition home or self-care (01) | DRG 470 ==
LOC: MEDSUR 01-15 09:32
PROVIDERS: ADMIT Orthopaedic Surgery; ATTEND Orthopaedic Surgery